=== PATIENT | female | born 1950 | race Caucasian/White ===

== ENCOUNTER 2018-02-27 11:36 | Emergency (ER) | payer MEDICARE, SELFPAY ==
[2018-02-27 11:43] VITALS: BP 182/79; PULSE 76; RESP 16; O2SAT 99; BMI 35.9
--- NOTE | 2018-02-27 12:26 | ED.WOUNDLAC ---
HPI - Wound/Laceration <LEXIE Faith - Last Filed: 02/27/18 19:49> General Chief Complaint: Wound/Laceration Stated Complaint: LACERATION TO INDEX FINGER LEFT HAND Time Seen by Provider: 02/27/18 12:19 History of Present Illness HPI narrative: 67-year-old female here for complaint of a laceration to her distal left index finger. She has states that she was cutting a basal in the kitchen when she accidentally cut her finger with kitchen utensils. She denies any other injuries or complaints. Kidney tonsil was on the sore older. She does not know when her last tetanus shot was. Laceration was through the nail. Related Data Allergies Allergy/AdvReac Type Severity Reaction Status Date / Time No Known Drug Allergies Allergy Verified 02/27/18 11:43 Review of Systems <LEXIE Faith - Last Filed: 02/27/18 19:49> Constitutional Denies chills, Denies fever(s), Denies lethargy and Denies weakness Eyes Denies change in vision, Denies eye discharge, Denies irritation and Denies loss of vision Cardiovascular Denies chest pain, Denies irregular heart rhythm, Denies lightheadedness, Denies palpitations and Denies orthopnea Gastrointestinal Gastrointestinal: Denies abdominal pain, Denies change in bowel habits, Denies diarrhea, Denies nausea and Denies vomiting Genitourinary Denies hematuria, Denies flank pain, Denies urinary incontinence and Denies urinary urgency Musculoskeletal Comments: Laceration at the distal left index finger Integumentary/Breasts Denies pruritus, Denies erythema, Denies rash and Denies wounds Neurologic Denies loss of vision and Denies weakness Endocrine Denies palpitations Exam <LEXIE Faith - Last Filed: 02/27/18 19:49> Initial Vital Signs Initial Vital Signs: Vital Signs Pulse Rate 76 02/27/18 11:43 Respiratory Rate 16 02/27/18 11:43 Blood Pressure 182/79 H 02/27/18 11:43 Pulse Oximetry 99 02/27/18 11:43 Const General: cooperative and well developed Nutritional Appearance: well nourished Orientation: alert, awake, oriented x3 and not confused Eyes General: appearance normal, both eyes and all related structures Conjunctivae: conjunctivae normal Sclera: sclerae normal Pupils: PERRL EOM: EOM intact bilaterally Resp Effort & Inspection: normal respiratory effort, able to speak in complete sentences, no respiratory distress and no use of accessory muscles Auscultation: clear to auscultation bilaterally, no rales, no rhonchi and no wheezes Cardio Rate: regular rate Rhythm: regular rhythm Heart Sounds: no click, no gallops, no murmurs and no rubs Skin General: no rashes or lesions noted, No jaundice and No petechiae Extrem Other: 1 cm avulsion laceration into the distal left index finger radial aspect with laceration through the nail bed distal sensation is intact. Full range of motion. Distal cap refill is intact. <Dariusz Conley DO - Last Filed: 03/04/18 20:48> Initial Vital Signs Initial Vital Signs: Vital Signs Pulse Rate 76 02/27/18 11:43 Respiratory Rate 16 02/27/18 11:43 Blood Pressure 182/79 H 02/27/18 11:43 Pulse Oximetry 99 02/27/18 11:43 Procedures <LEXIE Faith - Last Filed: 02/27/18 19:49> Joint Aspiration/Injection Laceration 1: Site: hand (Left index finger) Side (If applicable): left Size (cm): 1 Description: flap and other (Through the nail bed) Local Anesthetic: lidocaine 1% Amount of anesthesia used (mL): 1.5 Skin layer closed with: nylon Size (cm): 5-0 Number of sutures: 2 Technique: simple, interrupted Course <LEXIE Faith - Last Filed: 02/27/18 19:49> Orders Ordered: Discontinued Medications Diphtheria/Tetanus/Acell Pertussis (Adacel) 0.5 ml IM .ONCE ONE Stop: 02/27/18 12:56 Last Admin: 02/27/18 13:15 Dose: 0.5 ml Vital Signs - 8 hr 02/27/18 13:27 Pulse Rate 72 Respiratory Rate 15 Blood Pressure [Left Arm] 151/86 H Pulse Oximetry 100 <Dariusz Conley DO - Last Filed: 03/04/18 20:48> Orders Ordered: Discontinued Medications Diphtheria/Tetanus/Acell Pertussis (Adacel) 0.5 ml IM .ONCE ONE Stop: 02/27/18 12:56 Last Admin: 02/27/18 13:15 Dose: 0.5 ml Vital Signs - 8 hr 02/27/18 13:27 Pulse Rate 72 Respiratory Rate 15 Blood Pressure [Left Arm] 151/86 H Pulse Oximetry 100 MDM - Wound/Laceration <LEXIE Faith - Last Filed: 02/27/18 19:49> Medical Records Laceration a distal left index finger was closed with 2 simple interrupted sutures. Portion of her nail was removed as it was loosely attached to the finger. Tetanus was updated in the emergency room. Wound dressed with bacitracin and a dressing. Sutures to be removed in 7 days. Keep wound area clean and dry for 24 hr. Dress wound daily with bacitracin and a dressing. Discharge Plan Departure Patient Disposition: Home, Self-Care Clinical Impression: Laceration of left index finger Discharge Date/Time: 02/27/18 13:35 Interventions: ED Discharge Assessment Last Done: 02/27/18 13:34 Instructions: DI for Laceration Repair -- Finger Activity Restrictions/Additional Instructions: Laceration left index finger was closed with 2 sutures. Keep wound dressing on clean and dry for the next 24 hr. After 24 hr may shower briefly dry wound afterwards dressed with bacitracin and a dressing. Dress wound daily with bacitracin and a dressing. Sutures to be removed in 7 days. Use [id number] Tylenol or Motrin as needed for any discomfort. Follow up with her primary care provider. Tetanus was updated in the emergency room today. Referrals: [facility] [Provider Group] <Dariusz Conley DO - Last Filed: 03/04/18 20:48> Cosign ED Attending Sindy Attestation: I was immediately available in the department for consultation. Documentation has been reviewed. I agree with assessment and plan.
[2018-02-27] MEDS: TET,DIPH,PERTUSS(ACELL),VAC/PF 0.5 ML SYRINGE IM (13:15)
[2018-02-27 13:27] VITALS: BP 151/86; PULSE 72; RESP 15; O2SAT 100
== END 2018-02-27 13:35 | disposition home or self-care (01) ==
PROVIDERS: Emergency Provider Nurse Practitioner Family
DX: S61.211A Laceration without foreign body of left index finger without damage to nail, initial encounter (principal); W26.0XXA Contact with knife, initial encounter
CPT/HCPCS: 12001; 99283; 90715